=== PATIENT | male | born 1970 | race Hispanic/Latino ===

== ENCOUNTER 2019-01-28 07:29 | Outpatient (CLI) | payer OTHER ==
--- NOTE | 2019-01-28 08:29 | ULT ---
COMPLETE ABDOMEN ULTRASOUND: INDICATION: LFTs and history of ulcerative colitis. FINDINGS: The liver demonstrates diffuse increased echogenicity consistent with fatty infiltration. The gallbladder is normal-appearing. No sonographic Robison's sign is reported. The common bile duct measures 3.5 mm. The right kidney measures 10.1 cm in length and the left measures 11.8 cm in length. The no focal re nal lesion or hydronephrosis is evident. The spleen measured 9.2 cm in length. The visualized aspect of the pancreas, aorta, and IVC were within normal limits. IMPRESSION: Fatty liver. POS: [facility]
== END 2019-01-28 07:30 | disposition home or self-care (01) ==
LOC: BICULT 07:29
PROVIDERS: ATTEND Internal Medicine
DX: R94.5 Abnormal results of liver function studies (principal); K51.90 Ulcerative colitis, unspecified, without complications; K76.0 Fatty (change of) liver, not elsewhere classified
CPT/HCPCS: 76700